=== PATIENT | male | born 1940 | race Caucasian/White ===

== ENCOUNTER 2023-04-01 10:05 | Inpatient (IN) ==
[2023-04-01 12:23] LABS: ABS Basophils 0.1 10^3/uL (0.0-0.1); ABS Lymphocytes 1.2 10^3/uL (1.0-4.8); ABS Monocytes 0.7 10^3/uL (0.0-1.1); ABS Neutrophils 10.7 10^3/uL (1.5-7.6); Eosinophil % 0.2 %; Hematocrit 40.1 % (38-53); Hemoglobin 13.4 g/dL (13.2-16.3); Lymphocyte % 9.3 %; Mean Corpuscular Hemoglobin 29.5 pg (27-33); Mean Corpuscular Hgb Conc 33.4 g/dL (31-36); Mean Corpuscular Volume 88.4 fL (80-97); Mean Platelet Volume 7.8 fL (7.5-11.2); Platelet Count 334 10^3/uL (150-450); Red Blood Count 4.54 10^6/uL (4.06-5.63); Red Cell Distribution Width 16.2 % (12-17); White Blood Count 12.8 10^3/uL (3.6-10.2)
[2023-04-01 12:35] LABS: Albumin 3.5 g/dL (3.2-5.2); Calcium 9.1 mg/dL (8.6-10.3); Total Bilirubin 0.7 mg/dL (0.2-1.0)
[2023-04-01 12:41] LABS: Albumin/Globulin Ratio 0.9 (1-3); C Reactive Protein 189.73 mg/L (<8.01); Creatinine, Serum 2.17 mg/dL (0.67-1.17); Globulin 3.7 g/dL (2-4); Total Protein 7.2 g/dL (6.4-8.9); eGFR CKD-EPI 29.7 (>60)
[2023-04-01 12:52] LABS: Activated Partial Thrombo Time 32.9 seconds (26.0-38.0); INR 1.24 (0.88-1.18)
[2023-04-01] MEDS ORDERED: Lactated Ringers 1000 ml BAG 1,000 ML IV ONE (13:17)
[2023-04-01] MEDS ORDERED: cefTRIAXone 2 gm/50 mL D5W 2 GM/50 ML BAG IV ONE (14:10)
[2023-04-01 15:56] LABS: Urine Appearance Clear; Urine Bilirubin Negative (Negative); Urine Blood Negative (Negative); Urine Color Yellow; Urine Glucose Negative (Negative); Urine Ketones Trace (Negative); Urine Nitrite Negative (Negative); Urine Protein 1+(30 mg/dL) (Negative); Urine Specific Gravity 1.021 (1.002-1.030); Urine Urobilinogen Negative (Negative)
[2023-04-01 15:59] LABS: Urine Bacteria Absent (Absent); Urine Red Blood Cell Trace(0-2/hpf) (Absent); Urine Squamous Epithelial Cell Present (Absent); Urine White Blood Cell Trace(0-5/hpf) (Absent)
[2023-04-01] MEDS ORDERED: methylPREDNISolone SOD SUCC 40 mg/ml 1 ml VIAL IV ONE (16:52)
[2023-04-01] MEDS: Albuterol/Ipratropium NEB.SOL (2.5/0.5 MG) 3 ML NEB.SOLN INH SCH (19:02)
[2023-04-01] MEDS: Azithromycin 500 mg/250 ml NS 500 MG/250 ML BAG IVPB SCH (19:21)
[2023-04-01] MEDS: Enoxaparin 30 MG/0.3 ML SYR SUBCUT SCH (20:24)
[2023-04-02] MEDS: methylPREDNISolone SOD SUCC 40 mg/ml 1 ml VIAL IV SCH ×3 (02:26→18:30)
[2023-04-02 03:20] LABS: ABS Lymphocytes 0.6 10^3/uL (1.0-4.8); ABS Neutrophils 6.5 10^3/uL (1.5-7.6); Hematocrit 38.3 % (38-53); Hemoglobin 12.9 g/dL (13.2-16.3); Lymphocyte % 8.1 %; Mean Corpuscular Hemoglobin 29.5 pg (27-33); Mean Corpuscular Hgb Conc 33.7 g/dL (31-36); Mean Corpuscular Volume 87.3 fL (80-97); Mean Platelet Volume 7.5 fL (7.5-11.2); Platelet Count 299 10^3/uL (150-450); Red Blood Count 4.39 10^6/uL (4.06-5.63); Red Cell Distribution Width 16.3 % (12-17); White Blood Count 7.2 10^3/uL (3.6-10.2)
[2023-04-02 03:43] LABS: Calcium 8.4 mg/dL (8.6-10.3)
[2023-04-02 03:48] LABS: Creatinine, Serum 1.87 mg/dL (0.67-1.17); eGFR CKD-EPI 35.5 (>60)
[2023-04-02] MEDS: Albuterol/Ipratropium NEB.SOL (2.5/0.5 MG) 3 ML NEB.SOLN INH SCH (06:48)
[2023-04-02] MEDS ORDERED: Albuterol HFA INHALER 8 gm MDI INH PRN (11:34)
[2023-04-02] MEDS ORDERED: cefTRIAXone 1 gm/50 mL D5W 1 GM/50 ML BAG IV SCH (13:00)
[2023-04-02] MEDS: CMC:FLUTICAS/UMECLI/VILANT 100-62.5-25 MDI (NF) INH SCH ×2 (13:46→15:59)
[2023-04-02] MEDS: Azithromycin 500 mg/250 ml NS 500 MG/250 ML BAG IVPB SCH (18:25)
[2023-04-02] MEDS: Enoxaparin 30 MG/0.3 ML SYR SUBCUT SCH (21:41)
[2023-04-03] MEDS: methylPREDNISolone SOD SUCC 40 mg/ml 1 ml VIAL IV SCH ×2 (01:52→10:00)
[2023-04-03 07:00] LABS: Hematocrit 39.6 % (38-53); Mean Corpuscular Hemoglobin 29.1 pg (27-33); Mean Corpuscular Hgb Conc 32.9 g/dL (31-36); Mean Corpuscular Volume 88.3 fL (80-97); Mean Platelet Volume 7.9 fL (7.5-11.2); Platelet Count 360 10^3/uL (150-450); Red Blood Count 4.48 10^6/uL (4.06-5.63); Red Cell Distribution Width 16.3 % (12-17)
[2023-04-03] MEDS: CMC:FLUTICAS/UMECLI/VILANT 100-62.5-25 MDI (NF) INH SCH (07:04)
[2023-04-03 07:29] LABS: Calcium 9.2 mg/dL (8.6-10.3); Creatinine, Serum 1.91 mg/dL (0.67-1.17); Magnesium 2.3 mg/dL (1.9-2.7); Potassium 4.5 mmol/L (3.5-5.0); eGFR CKD-EPI 34.6 (>60)
[2023-04-03] MEDS ORDERED: Lactated Ringers 1000 ml BAG 1,000 ML IV SCH (13:00)
[2023-04-03] MEDS: Azithromycin 500 mg/250 ml NS 500 MG/250 ML BAG IVPB SCH (18:20)
[2023-04-03] MEDS: Enoxaparin 30 MG/0.3 ML SYR SUBCUT SCH (20:46)
[2023-04-04 06:38] LABS: Hemoglobin 12.7 g/dL (13.2-16.3); Mean Corpuscular Hemoglobin 29.7 pg (27-33); Mean Corpuscular Hgb Conc 33.6 g/dL (31-36); Mean Corpuscular Volume 88.5 fL (80-97); Mean Platelet Volume 7.5 fL (7.5-11.2); Platelet Count 358 10^3/uL (150-450); Red Blood Count 4.29 10^6/uL (4.06-5.63); Red Cell Distribution Width 16.3 % (12-17); White Blood Count 13.6 10^3/uL (3.6-10.2)
[2023-04-04 06:55] LABS: Creatinine, Serum 2.04 mg/dL (0.67-1.17); Potassium 4.3 mmol/L (3.5-5.0); eGFR CKD-EPI 31.9 (>60)
[2023-04-04] MEDS ORDERED: Lactated Ringers 1000 ml BAG 1,000 ML IV SCH (07:00)
[2023-04-04] MEDS: CMC:FLUTICAS/UMECLI/VILANT 100-62.5-25 MDI (NF) INH SCH (07:14)
[2023-04-04 17:16] VITALS: BP 139/82
== END 2023-04-04 18:20 | disposition home or self-care (01) | DRG 189 ==
LOC: ED 10:05 → EDHOLD 10:05 → SUATTDRO 16:12 → EDHOLD 04-02 10:00 → MED 04-02 19:31
PROVIDERS: ADMIT Internal Medicine; ATTEND Hospitalist

== ENCOUNTER 2023-12-19 12:05 | Inpatient (IN) ==
[2023-12-19 12:29] LABS: Venous Bicarbonate HCO3 24.6 mmol/L (24-28)
[2023-12-19] MEDS: Dexamethasone IV 4 MG/ML VIAL 1 ml VIAL IV SLOW PU ONE (12:32)
[2023-12-19 12:33] LABS: ABS Basophils 0.1 10^3/uL (0.0-0.1); ABS Eosinophils 0.1 10^3/uL (0.0-0.5); ABS Lymphocytes 1.3 10^3/uL (1.0-4.8); ABS Monocytes 0.5 10^3/uL (0.0-1.1); ABS Neutrophils 7.4 10^3/uL (1.5-7.6); ABS Nucleated RBC 0.01 10^3/ul; Hematocrit 38.3 % (38-53); Hemoglobin 12.7 g/dL (13.2-16.3); Lymphocyte % 14.3 %; Mean Corpuscular Hemoglobin 27.7 pg (27-33); Mean Corpuscular Hgb Conc 33.2 g/dL (31-36); Mean Corpuscular Volume 83.2 fL (80-97); Mean Platelet Volume 8.2 fL (7.5-11.2); Nucleated Red Blood Cells % 0.1 %/100WBC (0.0-0.8); Platelet Count 235 10^3/uL (150-450); Red Cell Distribution Width 17.3 % (12-17); White Blood Count 9.4 10^3/uL (3.6-10.2)
[2023-12-19] MEDS: Magnesium Sulfate IV 1GM/100ML 1 GM/100 ML BAG IV ONE (12:35)
[2023-12-19 12:42] LABS: INR 1.11 (0.83-1.13)
[2023-12-19] MEDS: Albuterol/Ipratropium NEB.SOL (2.5/0.5 MG) 3 ML NEB.SOLN INH ONE (12:48)
[2023-12-19 13:25] LABS: Albumin 3.5 g/dL (3.2-5.2); Creatinine, Serum 1.72 mg/dL (0.67-1.17); Globulin 3.6 g/dL (2-4); Potassium 3.9 mmol/L (3.5-5.0); Total Bilirubin 0.8 mg/dL (0.2-1.0); Total Protein 7.1 g/dL (6.4-8.9)
[2023-12-19 14:05] LABS: High Sensitivity Troponin 1 Hr 65 pg/mL (<20)
[2023-12-19] MEDS: Azithromycin 500 mg/250 ml NS 500 MG/250 ML BAG IVPB ONE (14:44)
[2023-12-19] MEDS: cefTRIAXone 1 gm/50 mL D5W 1 GM/50 ML BAG IV SCH (14:51)
[2023-12-19] MEDS: cefTRIAXone 1 gm/50 mL D5W 1 GM/50 ML BAG IV ONE (15:54)
[2023-12-19] MEDS: methylPREDNISolone SOD SUCC 40 mg/ml 1 ml VIAL IV SCH (17:36)
[2023-12-19] MEDS ORDERED: Albuterol HFA INHALER 8 gm MDI INH PRN (17:41)
[2023-12-19] MEDS ORDERED: Polyethyl Glycol/Propylene Gly OPHTH.SOLN BOTH EYES PRN (17:42)
[2023-12-19] MEDS: Enoxaparin 40 MG/0.4 ML SYR SUBCUT SCH (18:24)
[2023-12-20 05:13] LABS: ABS Lymphocytes 0.7 10^3/uL (1.0-4.8); ABS Monocytes 0.1 10^3/uL (0.0-1.1); ABS Neutrophils 2.4 10^3/uL (1.5-7.6); ABS Nucleated RBC 0.01 10^3/ul; Hematocrit 34.4 % (38-53); Hemoglobin 11.3 g/dL (13.2-16.3); Lymphocyte % 21.2 %; Mean Corpuscular Hemoglobin 27.7 pg (27-33); Mean Platelet Volume 8.2 fL (7.5-11.2); Nucleated Red Blood Cells % 0.2 %/100WBC (0.0-0.8); Platelet Count 202 10^3/uL (150-450); Red Blood Count 4.09 10^6/uL (4.06-5.63); Red Cell Distribution Width 17.5 % (12-17); White Blood Count 3.2 10^3/uL (3.6-10.2)
[2023-12-20 05:49] LABS: Calcium 8.5 mg/dL (8.6-10.3); Creatinine, Serum 1.69 mg/dL (0.67-1.17); Magnesium 2.1 mg/dL (1.9-2.7); Potassium 4.3 mmol/L (3.5-5.0); eGFR CKD-EPI 39.8 (>60)
[2023-12-20] MEDS: Azithromycin 500 mg/250 ml NS 500 MG/250 ML BAG IVPB SCH (14:21)
[2023-12-20] MEDS: cefTRIAXone 1 gm/50 mL D5W 1 GM/50 ML BAG IV SCH (16:31)
[2023-12-21 04:43] LABS: ABS Lymphocytes 0.7 10^3/uL (1.0-4.8); ABS Monocytes 0.2 10^3/uL (0.0-1.1); ABS Neutrophils 8.6 10^3/uL (1.5-7.6); ABS Nucleated RBC 0.01 10^3/ul; Hemoglobin 11.6 g/dL (13.2-16.3); Lymphocyte % 6.9 %; Mean Corpuscular Hemoglobin 27.9 pg (27-33); Mean Corpuscular Hgb Conc 33.2 g/dL (31-36); Mean Corpuscular Volume 84.1 fL (80-97); Mean Platelet Volume 8.5 fL (7.5-11.2); Nucleated Red Blood Cells % 0.1 %/100WBC (0.0-0.8); Platelet Count 233 10^3/uL (150-450); Red Blood Count 4.16 10^6/uL (4.06-5.63); Red Cell Distribution Width 17.4 % (12-17); White Blood Count 9.5 10^3/uL (3.6-10.2)
[2023-12-21 05:23] LABS: Anion Gap 6 mmol/L (2-16); Blood Urea Nitrogen 43 mg/dL (6-24); CO2 Carbon Dioxide 26 mmol/L (22-32); Calcium 9.2 mg/dL (8.6-10.3); Chloride 105 mmol/L (101-111); Creatinine, Serum 1.52 mg/dL (0.67-1.17); Glucose 133 mg/dL (70-100); Magnesium 2.2 mg/dL (1.9-2.7); Sodium 137 mmol/L (135-145); eGFR CKD-EPI 45.2 (>60)
[2023-12-21 07:01] LABS: Potassium, Whole Blood 4.6 mmol/L (3.4-4.5)
[2023-12-22 05:49] LABS: Hematocrit 36.6 % (38-53); Hemoglobin 11.9 g/dL (13.2-16.3); Mean Corpuscular Hemoglobin 27.3 pg (27-33); Mean Corpuscular Hgb Conc 32.6 g/dL (31-36); Mean Corpuscular Volume 83.8 fL (80-97); Mean Platelet Volume 8.4 fL (7.5-11.2); Platelet Count 238 10^3/uL (150-450); Red Blood Count 4.36 10^6/uL (4.06-5.63); Red Cell Distribution Width 17.3 % (12-17); White Blood Count 7.7 10^3/uL (3.6-10.2)
[2023-12-22 06:06] LABS: Calcium 9.2 mg/dL (8.6-10.3); Creatinine, Serum 1.68 mg/dL (0.67-1.17); Potassium 4.7 mmol/L (3.5-5.0); eGFR CKD-EPI 40.1 (>60)
[2023-12-22] MEDS: Albuterol/Ipratropium NEB.SOL (2.5/0.5 MG) 3 ML NEB.SOLN INH PRN (09:34)
[2023-12-24 05:23] LABS: ABS Lymphocytes 0.5 10^3/uL (1.0-4.8); ABS Monocytes 0.2 10^3/uL (0.0-1.1); ABS Neutrophils 4.7 10^3/uL (1.5-7.6); ABS Nucleated RBC 0.01 10^3/ul; Hemoglobin 10.8 g/dL (13.2-16.3); Lymphocyte % 8.7 %; Mean Corpuscular Hemoglobin 27.4 pg (27-33); Mean Corpuscular Hgb Conc 32.8 g/dL (31-36); Mean Corpuscular Volume 83.5 fL (80-97); Mean Platelet Volume 8.2 fL (7.5-11.2); Nucleated Red Blood Cells % 0.1 %/100WBC (0.0-0.8); Platelet Count 228 10^3/uL (150-450); Red Blood Count 3.95 10^6/uL (4.06-5.63); Red Cell Distribution Width 17.5 % (12-17); White Blood Count 5.5 10^3/uL (3.6-10.2)
[2023-12-24 06:06] LABS: Calcium 8.4 mg/dL (8.6-10.3); Creatinine, Serum 1.44 mg/dL (0.67-1.17); Magnesium 2.1 mg/dL (1.9-2.7); Potassium 4.9 mmol/L (3.5-5.0); eGFR CKD-EPI 48.2 (>60)
[2023-12-24] MEDS: Albuterol/Ipratropium NEB.SOL (2.5/0.5 MG) 3 ML NEB.SOLN INH SCH (12:13)
[2023-12-25 06:15] LABS: ABS Lymphocytes 0.5 10^3/uL (1.0-4.8); ABS Monocytes 0.3 10^3/uL (0.0-1.1); ABS Neutrophils 5.4 10^3/uL (1.5-7.6); Hematocrit 33.6 % (38-53); Lymphocyte % 8.7 %; Mean Corpuscular Hemoglobin 27.4 pg (27-33); Mean Corpuscular Hgb Conc 32.7 g/dL (31-36); Mean Corpuscular Volume 83.7 fL (80-97); Mean Platelet Volume 8.2 fL (7.5-11.2); Platelet Count 225 10^3/uL (150-450); Red Blood Count 4.02 10^6/uL (4.06-5.63); Red Cell Distribution Width 17.3 % (12-17); White Blood Count 6.3 10^3/uL (3.6-10.2)
[2023-12-25 06:34] LABS: Calcium 8.3 mg/dL (8.6-10.3); Creatinine, Serum 1.38 mg/dL (0.67-1.17); Magnesium 2.1 mg/dL (1.9-2.7); Potassium 4.6 mmol/L (3.5-5.0); eGFR CKD-EPI 50.7 (>60)
[2023-12-25 14:18] VITALS: BP 138/88
== END 2023-12-25 15:30 | disposition home health service (06) | DRG 190 ==
LOC: ED 12:05 → SUATTDRO 15:32 → EDHOLD 15:32 → ICU 15:57 → SSU 16:35
PROVIDERS: ADMIT Student in an Organized Health Care Education/Training Program; ATTEND Internal Medicine